=== PATIENT | female | born 1935 | race Caucasian/White ===

== ENCOUNTER 2016-10-19 12:17 | Inpatient (IN) | payer OTHER, MEDICARE ==
[2016-10-19] MEDS ORDERED: ONDANSETRON HCL 4 MG TAB PO PRN (14:53)
[2016-10-19] MEDS ORDERED: SPIRONOLACTONE 25 MG TAB PO PRN (14:53)
[2016-10-19] MEDS ORDERED: TEMAZEPAM 7.5 MG CAP PO PRN (14:53)
[2016-10-19] MEDS ORDERED: ALBUTEROL HFA 60 PUFF/INHALER INH PRN (14:53)
[2016-10-19] MEDS ORDERED: DEXTROSE/SALINE 0.45/KCL 20MEQ 1,000 ML/1,000 ML SOL IV SCH (15:00)
[2016-10-19 15:18] LABS: BASOPHILS % (AUTO) 1 % (0-3); EOSINOPHILS % (AUTO) 1 % (0-9); HEMATOCRIT 34 % (35-47); MEAN CORPUSCULAR HGB CONC 35.3 gm/dl (32.0-36.0); MEAN CORPUSCULAR VOLUME 86 fL (81-99); MONOCYTES % (AUTO) 8.8 % (0-12); NEUTROPHILS % (AUTO) 80.5 % (37-80)
[2016-10-19] MEDS ORDERED: LACTATED RINGERS 1,000 ML IV ONE (15:31)
[2016-10-19] MEDS ORDERED: CEFAZOLIN (PREMIX) 1 GM 1 GM/50 ML SOL IV ONE (15:31)
[2016-10-19 15:36] LABS: ALBUMIN 3.5 gm/dl (3.4-5.0); POTASSIUM 3.9 mMol/L (3.5-5.1)
[2016-10-19] MEDS ORDERED: SCOPOLAMINE 1.5MG PATCH TD SCH (15:45)
[2016-10-19] MEDS ORDERED: LACTATED RINGERS 1,000 ML IV SCH (15:45)
[2016-10-19 16:02] VITALS: BP 96/63; PULSE 65; RESP 20; TEMP 97.5; O2SAT 98
[2016-10-19 19:30] LABS: ABO A; ANTIBODY SCREEN Negative; RH TYPE Positive
[2016-10-19] MEDS ORDERED: CARVEDILOL 3.125 MG TAB PO SCH (21:00)
[2016-10-19] MEDS ORDERED: FAMOTIDINE 20 MG TAB PO SCH (21:00)
[2016-10-20] MEDS ORDERED: PANTOPRAZOLE SODIUM 40 MG ECT PO SCH (09:00)
[2016-10-20] MEDS ORDERED: BUPROPION XL 300 MG T24 PO SCH (09:00)
[2016-10-20] MEDS ORDERED: POTASSIUM CHLORIDE 10 MEQ TER PO SCH (09:00)
[2016-10-20] MEDS ORDERED: LISINOPRIL PO SCH (09:00)
[2016-10-20] MEDS ORDERED: ANASTROZOLE 1 MG TAB PO SCH (09:00)
== END 2016-10-19 19:00 | disposition short-term general hospital (02) | DRG 536 ==
LOC: ACUTE CARE 14:41
PROVIDERS: ADMIT Family Medicine; ATTEND Family Medicine
DX: S72.001A Fracture of unspecified part of neck of right femur, initial encounter for closed fracture (principal); C78.2 Secondary malignant neoplasm of pleura; I50.9 Heart failure, unspecified; C50.919 Malignant neoplasm of unspecified site of unspecified female breast; W19.XXXA Unspecified fall, initial encounter
CPT/HCPCS: 36415; 80053; 85025; 86850; 86900; 86901; 93005

== ENCOUNTER 2016-10-24 14:27 | Inpatient (IN) | payer OTHER, MEDICARE ==
[2016-10-24] MEDS ORDERED: RANITIDINE HCL 150 MG TAB PO PRN (17:19)
[2016-10-24] MEDS ORDERED: PATIENT EDUCATION 1 MISC PRN (17:51)
[2016-10-24] MEDS: OXYCODONE HYDROCHLORIDE 5 MG TAB PO PRN ×2 (17:59→21:59)
[2016-10-24] MEDS ORDERED: OMEPRAZOLE 40 MG ECC PO SCH (21:00)
[2016-10-24] MEDS: CARVEDILOL 3.125 MG TAB PO SCH (21:59)
[2016-10-24] MEDS: ONDANSETRON HCL 4 MG TAB PO PRN (21:59)
[2016-10-24] MEDS: RIVAROXABAN 10 MG TAB PO SCH (21:59)
[2016-10-24] MEDS ORDERED: TEMAZEPAM 15MG 15 MG CAP PO ONE (22:00)
[2016-10-24] MEDS: PANTOPRAZOLE SODIUM 40 MG ECT PO SCH (22:32)
[2016-10-25] MEDS: OXYCODONE HYDROCHLORIDE 5 MG TAB PO PRN ×4 (01:59→21:36)
[2016-10-25] MEDS ORDERED: POTASSIUM CHLORIDE 10 MEQ TER ONE (08:56)
[2016-10-25] MEDS ORDERED: POTASSIUM CHLORIDE 10 MEQ CAPSULE PO SCH (09:00)
[2016-10-25] MEDS: AZITHROMYCIN 250 MG TAB PO SCH (09:04)
[2016-10-25] MEDS: SPIRONOLACTONE 25 MG TAB PO SCH (09:06)
[2016-10-25] MEDS: LISINOPRIL 5 MG TAB PO SCH (09:06)
[2016-10-25] MEDS: BUPROPION XL 300 MG T24 PO SCH (09:07)
[2016-10-25] MEDS: CARVEDILOL 3.125 MG TAB PO SCH ×2 (09:07→21:36)
[2016-10-25] MEDS: ANASTROZOLE 1 MG TAB PO SCH ×2 (10:25→12:10)
[2016-10-25] MEDS: RIVAROXABAN 10 MG TAB PO SCH (15:48)
[2016-10-25] MEDS: ONDANSETRON HCL 4 MG TAB PO PRN (16:54)
[2016-10-25] MEDS: PANTOPRAZOLE SODIUM 40 MG ECT PO SCH (21:36)
[2016-10-25] MEDS: DOCUSATE SODIUM 100 MG SGL PO PRN (21:36)
[2016-10-25] MEDS: TEMAZEPAM 7.5 MG CAP PO PRN (21:37)
[2016-10-25] MEDS ORDERED: ALPRAZOLAM 0.25 MG TAB PO ONE (22:58)
[2016-10-26] MEDS: OXYCODONE HYDROCHLORIDE 5 MG TAB PO PRN ×4 (04:04→21:20)
[2016-10-26] MEDS: POTASSIUM CHLORIDE 10 MEQ TER PO SCH (08:48)
[2016-10-26] MEDS: LISINOPRIL 5 MG TAB PO SCH (08:49)
[2016-10-26] MEDS: SPIRONOLACTONE 25 MG TAB PO SCH (08:49)
[2016-10-26] MEDS: PANTOPRAZOLE SODIUM 40 MG ECT PO SCH (08:49)
[2016-10-26] MEDS: CARVEDILOL 3.125 MG TAB PO SCH ×2 (08:49→21:18)
[2016-10-26] MEDS: AZITHROMYCIN 250 MG TAB PO SCH (08:50)
[2016-10-26] MEDS: ANASTROZOLE 1 MG TAB PO SCH (08:51)
[2016-10-26] MEDS: BUPROPION XL 300 MG T24 PO SCH (08:51)
[2016-10-26] MEDS: DOCUSATE SODIUM 100 MG SGL PO PRN ×2 (13:07→21:20)
[2016-10-26] MEDS: FAMOTIDINE 20 MG TAB PO PRN (13:51)
[2016-10-26] MEDS: RIVAROXABAN 10 MG TAB PO SCH (16:06)
[2016-10-26] MEDS: TEMAZEPAM 7.5 MG CAP PO PRN (21:21)
[2016-10-26] MEDS ORDERED: DIAZEPAM 5 MG TAB PO ONE (23:23)
[2016-10-26] MEDS: ACETAMINOPHEN 325 MG PO PRN (23:31)
[2016-10-27] MEDS: OXYCODONE HYDROCHLORIDE 5 MG TAB PO PRN ×5 (04:30→23:28)
[2016-10-27] MEDS: SPIRONOLACTONE 25 MG TAB PO SCH (09:05)
[2016-10-27] MEDS: BUPROPION XL 300 MG T24 PO SCH (09:05)
[2016-10-27] MEDS: CARVEDILOL 3.125 MG TAB PO SCH ×2 (09:05→20:56)
[2016-10-27] MEDS: ANASTROZOLE 1 MG TAB PO SCH (09:05)
[2016-10-27] MEDS: POTASSIUM CHLORIDE 10 MEQ TER PO SCH (09:05)
[2016-10-27] MEDS: LISINOPRIL 5 MG TAB PO SCH (09:05)
[2016-10-27] MEDS: AZITHROMYCIN 250 MG TAB PO SCH (09:06)
[2016-10-27] MEDS: POLYETHYLENE GLYCOL 17 GM/1 TBS PDS PO PRN (09:06)
[2016-10-27] MEDS: PANTOPRAZOLE SODIUM 40 MG ECT PO SCH (09:14)
[2016-10-27] MEDS: ONDANSETRON HCL 4 MG TAB PO PRN (14:04)
[2016-10-27] MEDS: RIVAROXABAN 10 MG TAB PO SCH (16:22)
[2016-10-27] MEDS: DOCUSATE SODIUM 100 MG SGL PO PRN (20:56)
[2016-10-27] MEDS: TEMAZEPAM 15MG 15 MG CAP PO PRN (20:56)
[2016-10-28] MEDS: OXYCODONE HYDROCHLORIDE 5 MG TAB PO PRN ×4 (07:20→20:08)
[2016-10-28] MEDS: DOCUSATE SODIUM 100 MG SGL PO PRN ×2 (08:22→20:08)
[2016-10-28] MEDS: POLYETHYLENE GLYCOL 17 GM/1 TBS PDS PO PRN (08:22)
[2016-10-28] MEDS: SPIRONOLACTONE 25 MG TAB PO SCH (08:43)
[2016-10-28] MEDS: LISINOPRIL 5 MG TAB PO SCH (08:44)
[2016-10-28] MEDS: BUPROPION XL 300 MG T24 PO SCH (08:44)
[2016-10-28] MEDS: ANASTROZOLE 1 MG TAB PO SCH (08:44)
[2016-10-28] MEDS: POTASSIUM CHLORIDE 10 MEQ TER PO SCH (08:44)
[2016-10-28] MEDS: PANTOPRAZOLE SODIUM 40 MG ECT PO SCH (08:44)
[2016-10-28] MEDS: CARVEDILOL 3.125 MG TAB PO SCH ×2 (08:44→20:08)
[2016-10-28] MEDS: AZITHROMYCIN 250 MG TAB PO SCH (08:45)
[2016-10-28] MEDS: ONDANSETRON HCL 4 MG TAB PO PRN ×2 (08:55→20:28)
[2016-10-28] MEDS ORDERED: BISACODYL 5 MG TAB ECT PO PRN (13:45)
[2016-10-28] MEDS: RIVAROXABAN 10 MG TAB PO SCH (15:55)
[2016-10-28] MEDS: TEMAZEPAM 15MG 15 MG CAP PO PRN (21:39)
[2016-10-29] MEDS: OXYCODONE HYDROCHLORIDE 5 MG TAB PO PRN ×5 (00:12→21:02)
[2016-10-29] MEDS: PANTOPRAZOLE SODIUM 40 MG ECT PO SCH (08:55)
[2016-10-29] MEDS: CARVEDILOL 3.125 MG TAB PO SCH ×2 (08:55→20:02)
[2016-10-29] MEDS: POTASSIUM CHLORIDE 10 MEQ TER PO SCH (08:55)
[2016-10-29] MEDS: ANASTROZOLE 1 MG TAB PO SCH (08:55)
[2016-10-29] MEDS: BUPROPION XL 300 MG T24 PO SCH (08:56)
[2016-10-29] MEDS: LISINOPRIL 5 MG TAB PO SCH (08:56)
[2016-10-29] MEDS: SPIRONOLACTONE 25 MG TAB PO SCH (08:56)
[2016-10-29] MEDS: AZITHROMYCIN 250 MG TAB PO SCH (08:57)
[2016-10-29] MEDS: ONDANSETRON HCL 4 MG TAB PO PRN (15:12)
[2016-10-29] MEDS: RIVAROXABAN 10 MG TAB PO SCH (16:10)
[2016-10-29] MEDS: DOCUSATE SODIUM 100 MG SGL PO PRN (20:02)
[2016-10-29] MEDS: DIAZEPAM 5 MG TAB PO PRN (21:01)
[2016-10-29] MEDS: TEMAZEPAM 15MG 15 MG CAP PO PRN (23:34)
[2016-10-30] MEDS: OXYCODONE HYDROCHLORIDE 5 MG TAB PO PRN ×4 (05:49→19:52)
[2016-10-30] MEDS: BUPROPION XL 300 MG T24 PO SCH (08:25)
[2016-10-30] MEDS: POTASSIUM CHLORIDE 10 MEQ TER PO SCH (08:26)
[2016-10-30] MEDS: AZITHROMYCIN 250 MG TAB PO SCH (08:26)
[2016-10-30] MEDS: ANASTROZOLE 1 MG TAB PO SCH (08:27)
[2016-10-30] MEDS: PANTOPRAZOLE SODIUM 40 MG ECT PO SCH (08:27)
[2016-10-30] MEDS: SPIRONOLACTONE 25 MG TAB PO SCH (08:28)
[2016-10-30] MEDS: CARVEDILOL 3.125 MG TAB PO SCH ×2 (08:34→20:02)
[2016-10-30] MEDS: ONDANSETRON HCL 4 MG TAB PO PRN (11:04)
[2016-10-30] MEDS: LISINOPRIL 5 MG TAB PO SCH (11:07)
[2016-10-30] MEDS: RIVAROXABAN 10 MG TAB PO SCH (16:11)
[2016-10-30] MEDS: DIAZEPAM 5 MG TAB PO PRN (19:53)
[2016-10-30] MEDS: DOCUSATE SODIUM 100 MG SGL PO PRN (19:53)
[2016-10-30] MEDS: POLYETHYLENE GLYCOL 17 GM/1 TBS PDS PO PRN (20:02)
[2016-10-30] MEDS: TEMAZEPAM 15MG 15 MG CAP PO PRN (22:27)
[2016-10-31] MEDS: DIAZEPAM 5 MG TAB PO PRN ×2 (06:43→15:51)
[2016-10-31 07:26] LABS: CALCIUM 9.3 mg/dl (8.5-10.1); POTASSIUM 4.5 mMol/L (3.5-5.1)
[2016-10-31] MEDS: CARVEDILOL 3.125 MG TAB PO SCH ×2 (09:12→20:02)
[2016-10-31] MEDS: ANASTROZOLE 1 MG TAB PO SCH (09:12)
[2016-10-31] MEDS: BUPROPION XL 300 MG T24 PO SCH (09:12)
[2016-10-31] MEDS: POTASSIUM CHLORIDE 10 MEQ TER PO SCH (09:12)
[2016-10-31] MEDS: LISINOPRIL 5 MG TAB PO SCH (09:13)
[2016-10-31] MEDS: PANTOPRAZOLE SODIUM 40 MG ECT PO SCH (09:13)
[2016-10-31] MEDS: AZITHROMYCIN 250 MG TAB PO SCH (09:13)
[2016-10-31] MEDS: OXYCODONE HYDROCHLORIDE 5 MG TAB PO PRN ×4 (10:12→20:01)
[2016-10-31] MEDS: ONDANSETRON HCL 4 MG TAB PO PRN (11:12)
[2016-10-31] MEDS: RIVAROXABAN 10 MG TAB PO SCH (15:54)
[2016-10-31] MEDS: DOCUSATE SODIUM 100 MG SGL PO PRN (20:02)
[2016-10-31] MEDS: FAMOTIDINE 20 MG TAB PO PRN (20:37)
[2016-11-01] MEDS: DIAZEPAM 5 MG TAB PO PRN ×2 (00:15→22:31)
[2016-11-01] MEDS: OXYCODONE HYDROCHLORIDE 5 MG TAB PO PRN ×5 (01:35→21:06)
[2016-11-01] MEDS: ONDANSETRON HCL 4 MG TAB PO PRN (01:36)
[2016-11-01] MEDS: POTASSIUM CHLORIDE 10 MEQ TER PO SCH (09:29)
[2016-11-01] MEDS: LISINOPRIL 5 MG TAB PO SCH (09:29)
[2016-11-01] MEDS: BUPROPION XL 300 MG T24 PO SCH (09:29)
[2016-11-01] MEDS: AZITHROMYCIN 250 MG TAB PO SCH (09:29)
[2016-11-01] MEDS: ANASTROZOLE 1 MG TAB PO SCH (09:29)
[2016-11-01] MEDS: CARVEDILOL 3.125 MG TAB PO SCH ×2 (09:29→20:25)
[2016-11-01] MEDS: DOCUSATE SODIUM 100 MG SGL PO PRN ×2 (09:29→20:25)
[2016-11-01] MEDS: PANTOPRAZOLE SODIUM 40 MG ECT PO SCH (09:29)
[2016-11-01] MEDS: RIVAROXABAN 10 MG TAB PO SCH (16:49)
[2016-11-01] MEDS: FAMOTIDINE 20 MG TAB PO PRN (17:41)
[2016-11-02] MEDS: OXYCODONE HYDROCHLORIDE 5 MG TAB PO PRN ×4 (01:37→18:35)
[2016-11-02] MEDS: CARVEDILOL 3.125 MG TAB PO SCH ×2 (09:16→20:17)
[2016-11-02] MEDS: ANASTROZOLE 1 MG TAB PO SCH (09:16)
[2016-11-02] MEDS: PANTOPRAZOLE SODIUM 40 MG ECT PO SCH (09:17)
[2016-11-02] MEDS: BUPROPION XL 300 MG T24 PO SCH (09:17)
[2016-11-02] MEDS: AZITHROMYCIN 250 MG TAB PO SCH (09:17)
[2016-11-02] MEDS: LISINOPRIL 5 MG TAB PO SCH (09:17)
[2016-11-02] MEDS: POTASSIUM CHLORIDE 10 MEQ TER PO SCH (09:17)
[2016-11-02] MEDS: DOCUSATE SODIUM 100 MG SGL PO PRN (09:22)
[2016-11-02] MEDS: ONDANSETRON HCL 4 MG TAB PO PRN ×2 (11:28→18:35)
[2016-11-02] MEDS: FAMOTIDINE 20 MG TAB PO PRN (13:28)
[2016-11-02] MEDS: RIVAROXABAN 10 MG TAB PO SCH (16:23)
[2016-11-02] MEDS: DIAZEPAM 5 MG TAB PO PRN (20:17)
[2016-11-02] MEDS: FAMOTIDINE 20 MG TAB PO SCH (20:17)
[2016-11-03] MEDS: OXYCODONE HYDROCHLORIDE 5 MG TAB PO PRN ×5 (00:13→21:12)
[2016-11-03] MEDS ORDERED: DIAZEPAM 5 MG TAB PO ONE (00:30)
[2016-11-03] MEDS: ACETAMINOPHEN 325 MG PO PRN (00:34)
[2016-11-03] MEDS ORDERED: BIOTENE PO PRN (03:16)
[2016-11-03 07:10] LABS: CALCIUM 9.2 mg/dl (8.5-10.1); POTASSIUM 4.5 mMol/L (3.5-5.1)
[2016-11-03] MEDS: ANASTROZOLE 1 MG TAB PO SCH (08:06)
[2016-11-03] MEDS: CARVEDILOL 3.125 MG TAB PO SCH ×2 (08:06→21:09)
[2016-11-03] MEDS: AZITHROMYCIN 250 MG TAB PO SCH (08:07)
[2016-11-03] MEDS: POTASSIUM CHLORIDE 10 MEQ TER PO SCH (08:07)
[2016-11-03] MEDS: LISINOPRIL 5 MG TAB PO SCH (08:07)
[2016-11-03] MEDS: PANTOPRAZOLE SODIUM 40 MG ECT PO SCH (08:07)
[2016-11-03] MEDS: BUPROPION XL 300 MG T24 PO SCH (08:07)
[2016-11-03] MEDS: DIAZEPAM 5 MG TAB PO PRN (16:21)
[2016-11-03] MEDS: RIVAROXABAN 10 MG TAB PO SCH (16:21)
[2016-11-03] MEDS: FAMOTIDINE 20 MG TAB PO SCH (17:26)
[2016-11-04] MEDS: DIAZEPAM 5 MG TAB PO PRN ×3 (00:26→20:31)
[2016-11-04] MEDS: OXYCODONE HYDROCHLORIDE 5 MG TAB PO PRN ×4 (01:37→20:31)
[2016-11-04] MEDS: ACETAMINOPHEN 325 MG PO PRN ×4 (01:38→22:56)
[2016-11-04] MEDS: POLYETHYLENE GLYCOL 17 GM/1 TBS PDS PO PRN ×2 (06:20→20:39)
[2016-11-04] MEDS: BUPROPION XL 300 MG T24 PO SCH (08:12)
[2016-11-04] MEDS: ANASTROZOLE 1 MG TAB PO SCH (08:12)
[2016-11-04] MEDS: LISINOPRIL 5 MG TAB PO SCH (08:13)
[2016-11-04] MEDS: PANTOPRAZOLE SODIUM 40 MG ECT PO SCH (08:13)
[2016-11-04] MEDS: POTASSIUM CHLORIDE 10 MEQ TER PO SCH (08:13)
[2016-11-04] MEDS: AZITHROMYCIN 250 MG TAB PO SCH (08:13)
[2016-11-04] MEDS: CARVEDILOL 3.125 MG TAB PO SCH ×2 (08:14→20:30)
[2016-11-04] MEDS: RIVAROXABAN 10 MG TAB PO SCH (16:54)
[2016-11-04] MEDS: FAMOTIDINE 20 MG TAB PO SCH (16:54)
[2016-11-05] MEDS: OXYCODONE HYDROCHLORIDE 5 MG TAB PO PRN (08:10)
[2016-11-05] MEDS: ACETAMINOPHEN 325 MG PO PRN (08:11)
[2016-11-05] MEDS: POLYETHYLENE GLYCOL 17 GM/1 TBS PDS PO PRN (08:11)
[2016-11-05] MEDS: CARVEDILOL 3.125 MG TAB PO SCH (08:17)
[2016-11-05] MEDS: ANASTROZOLE 1 MG TAB PO SCH (08:17)
[2016-11-05] MEDS: BUPROPION XL 300 MG T24 PO SCH (08:17)
[2016-11-05] MEDS: POTASSIUM CHLORIDE 10 MEQ TER PO SCH (08:19)
[2016-11-05] MEDS: AZITHROMYCIN 250 MG TAB PO SCH (08:19)
[2016-11-05] MEDS: LISINOPRIL 5 MG TAB PO SCH (08:20)
[2016-11-05] MEDS: PANTOPRAZOLE SODIUM 40 MG ECT PO SCH (08:20)
[2016-11-05 08:35] VITALS: BP 121/70; PULSE 64; RESP 24; TEMP 97.5; O2SAT 98
[2016-11-05] MEDS ORDERED: BISACODYL 10 MG SUP PR PRN (09:06)
[2016-11-05 09:37] LABS: CALCIUM 9.3 mg/dl (8.5-10.1); POTASSIUM 4.4 mMol/L (3.5-5.1)
[2016-11-05] MEDS: DIAZEPAM 5 MG TAB PO PRN (12:43)
[2016-11-05 14:01] LABS: BASOPHILS % (AUTO) 1 % (0-3); EOSINOPHILS % (AUTO) 2 % (0-9); HEMATOCRIT 29 % (35-47); MEAN CORPUSCULAR HGB CONC 33.6 gm/dl (32.0-36.0); MEAN CORPUSCULAR VOLUME 89 fL (81-99); MONOCYTES % (AUTO) 8.2 % (0-12); NEUTROPHILS % (AUTO) 78.5 % (37-80)
== END 2016-11-05 14:15 | disposition home or self-care (01) | DRG 560 ==
LOC: ACUTE CARE 16:50
PROVIDERS: ADMIT Family Medicine; ATTEND Family Medicine
PROC: F01ZDFZ Gait and/or Balance Assessment using Assistive, Adaptive, Supportive or Protective Equipment (ICD-10-PCS; principal; 2016-10-25)
PROC: F01ZBZZ Bed Mobility Assessment (ICD-10-PCS; 2016-10-25)
PROC: F01ZCZZ Transfer Assessment (ICD-10-PCS; 2016-10-25)
PROC: F02Z0ZZ Bathing/Showering Assessment (ICD-10-PCS; 2016-10-25)
PROC: F02Z1ZZ Dressing Assessment (ICD-10-PCS; 2016-10-25)
PROC: F02Z3ZZ Grooming/Personal Hygiene Assessment (ICD-10-PCS; 2016-10-25)
DX: Z47.1 Aftercare following joint replacement surgery (principal); C79.9 Secondary malignant neoplasm of unspecified site; I50.9 Heart failure, unspecified; C50.919 Malignant neoplasm of unspecified site of unspecified female breast; E87.1 Hypo-osmolality and hyponatremia; Z96.641 Presence of right artificial hip joint; R11.0 Nausea; M62.838 Other muscle spasm
CPT/HCPCS: 36415; 80048; 85025; 94762; A6232

== ENCOUNTER 2016-11-22 10:08 | Emergency (ER) | payer MEDICARE, OTHER ==
[2016-11-22] MEDS ORDERED: SODIUM CHLORIDE 0.9% 1000ML 600 ML IV ONE (10:44)
[2016-11-22] MEDS ORDERED: LORAZEPAM 2 MG/ML SOL IV ONE (10:45)
[2016-11-22] MEDS ORDERED: SODIUM CHLORIDE 0.9% FLUSH 10 ML SOL IV PRN (11:05)
[2016-11-22 11:12] LABS: BASOPHILS % (AUTO) 1 % (0-3); EOSINOPHILS % (AUTO) 0 % (0-9); HEMATOCRIT 34 % (35-47); MEAN CORPUSCULAR HGB CONC 35.7 gm/dl (32.0-36.0); MEAN CORPUSCULAR VOLUME 86 fL (81-99); MONOCYTES % (AUTO) 5.9 % (0-12); NEUTROPHILS % (AUTO) 88.2 % (37-80)
[2016-11-22 11:13] LABS: ALBUMIN 3.3 gm/dl (3.4-5.0); CALCIUM 9.6 mg/dl (8.5-10.1); POTASSIUM 3.8 mMol/L (3.5-5.1)
[2016-11-22] MEDS ORDERED: LORAZEPAM 2 MG/ML SOL ONE (11:26)
[2016-11-22 11:43] VITALS: TEMP 97.3
[2016-11-22 12:55] VITALS: BP 99/60; PULSE 83; RESP 20; O2SAT 100
== END 2016-11-22 13:15 | disposition home or self-care (01) | DRG 392 ==
LOC: ED 10:08
DX: K59.01 Slow transit constipation (principal)
CPT/HCPCS: 36415; 74020; 80053; 85025; 96365; 96366; 96374; 99284; 99285; J2060

== ENCOUNTER 2016-12-01 10:32 | Outpatient (CLI) | payer OTHER, MEDICARE ==
[2016-11-22 12:55] VITALS: O2SAT 100
== END 2016-12-01 10:33 | disposition home or self-care (01) | DRG 566 ==
LOC: CONVCARE 10:32
PROVIDERS: ATTEND Orthopaedic Surgery
DX: Z96.641 Presence of right artificial hip joint (principal)
CPT/HCPCS: 73502

== ENCOUNTER 2018-09-07 17:53 | Emergency (ER) | payer MEDICARE, OTHER ==
[2018-09-07] MEDS ORDERED: ALBUTEROL/IPRATROPIUM 1 VIAL SOL INH ONE (18:47)
[2018-09-07 18:48] LABS: BASOPHILS % (AUTO) 1 % (0-3); EOSINOPHILS % (AUTO) 0 % (0-9); HEMATOCRIT 35 % (35-47); HEMOGLOBIN 12.1 gm/dl (12.0-15.5); LYMPHOCYTES % (AUTO) 12.4 % (10-50); MEAN CORPUSCULAR HEMOGLOBIN 35.3 pg (27.0-32.0); MEAN CORPUSCULAR HGB CONC 34.7 gm/dl (32.0-36.0); MONOCYTES % (AUTO) 15.3 % (0-12); NEUTROPHILS % (AUTO) 71.3 % (37-80)
[2018-09-07] MEDS ORDERED: ALBUTEROL/IPRATROPIUM 1 VIAL SOL ONE (18:51)
[2018-09-07 18:57] LABS: MEAN CORPUSCULAR VOLUME 102 fL (81-99)
[2018-09-07 19:03] LABS: ANISOCYTOSIS SLIGHT AMT; POIKILOCYTOSIS SLIGHT AMT
[2018-09-07 19:04] LABS: OVALOCYTES PRESENT
[2018-09-07 19:08] LABS: ALBUMIN 3.3 gm/dl (3.4-5.0); BILIRUBIN,TOTAL 0.4 mg/dl (0.2-1.0); CALCIUM 9.1 mg/dl (8.5-10.1); CARBON DIOXIDE 31.9 mEq/L (21-32); CREATININE 0.98 mg/dl (0.60-1.00); POTASSIUM 4.9 mMol/L (3.5-5.1); TOTAL PROTEIN 6.6 gm/dl (6.4-8.2); TROP I 0.037 ng/ml (0.000-0.056)
[2018-09-07 19:11] VITALS: O2SAT 98
[2018-09-07] MEDS ORDERED: AMOXIL/CLAVULANATE 400/5 ML PDR PO ONE (19:25)
[2018-09-07 19:34] VITALS: BP 106/66; PULSE 78; RESP 28; TEMP 97.4
[2018-09-07] MEDS ORDERED: AUGMENTIN(FRIDGE) 400 MG/5 ML ONE (19:37)
[2018-09-07] MEDS ORDERED: AMOXIL/CLAVULANATE 400/5 ML PDR ONE (19:37)
== END 2018-09-07 19:56 | disposition home or self-care (01) | DRG 204 ==
LOC: ED 17:53
DX: R06.02 Shortness of breath (principal); J18.1 Lobar pneumonia, unspecified organism
CPT/HCPCS: 36415; 71046; 80053; 83880; 84484; 85025; 93005; 99283; 99284; A9270-GY

== ENCOUNTER 2018-09-26 09:48 | Emergency (ER) | payer MEDICARE, OTHER ==
[2018-09-26] MEDS ORDERED: ALBUTEROL/IPRATROPIUM 1 VIAL SOL INH ONE (10:01)
[2018-09-26] MEDS ORDERED: ALBUTEROL/IPRATROPIUM 1 VIAL SOL ONE (10:02)
[2018-09-26] MEDS ORDERED: LORAZEPAM 0.5 MG TAB PO ONE (10:16)
[2018-09-26] MEDS ORDERED: LORAZEPAM 0.5 MG TAB ONE (10:21)
[2018-09-26 10:39] LABS: BASOPHILS % (AUTO) 1 % (0-3); EOSINOPHILS % (AUTO) 0 % (0-9); HEMATOCRIT 34 % (35-47); HEMOGLOBIN 11.6 gm/dl (12.0-15.5); LYMPHOCYTES % (AUTO) 10.3 % (10-50); MEAN CORPUSCULAR HGB CONC 33.8 gm/dl (32.0-36.0); NEUTROPHILS % (AUTO) 80.8 % (37-80)
[2018-09-26 10:52] LABS: ALBUMIN 3.1 gm/dl (3.4-5.0); BILIRUBIN,TOTAL 0.4 mg/dl (0.2-1.0); CARBON DIOXIDE 29.4 mEq/L (21-32); CREATININE 0.83 mg/dl (0.60-1.00); MEAN CORPUSCULAR VOLUME 104 fL (81-99); POTASSIUM 4.7 mMol/L (3.5-5.1); TOTAL PROTEIN 6.3 gm/dl (6.4-8.2)
[2018-09-26 11:01] LABS: OVALOCYTES PRESENT; POIKILOCYTOSIS PRESENT
[2018-09-26 11:19] VITALS: PULSE 81
[2018-09-26 12:05] VITALS: BP 104/72; O2SAT 98
[2018-09-26 12:10] VITALS: TEMP 97.3
[2018-09-26 12:28] VITALS: RESP 20
== END 2018-09-26 12:15 | disposition home or self-care (01) | DRG 880 ==
LOC: ED 09:48
DX: F41.9 Anxiety disorder, unspecified (principal); R06.02 Shortness of breath; I50.9 Heart failure, unspecified
CPT/HCPCS: 36415; 71046; 80053; 83880; 85025; 99283; 99284; A9270-GY

== ENCOUNTER 2018-10-15 07:05 | Inpatient (IN) | payer MEDICARE, OTHER ==
[2018-10-15 07:57] LABS: BASOPHILS % (AUTO) 1 % (0-3); EOSINOPHILS % (AUTO) 1 % (0-9); HEMATOCRIT 35 % (35-47); HEMOGLOBIN 11.7 gm/dl (12.0-15.5); LYMPHOCYTES % (AUTO) 6.3 % (10-50); MEAN CORPUSCULAR HEMOGLOBIN 33.8 pg (27.0-32.0); MEAN CORPUSCULAR HGB CONC 32.9 gm/dl (32.0-36.0); MONOCYTES % (AUTO) 4.5 % (0-12); NEUTROPHILS % (AUTO) 87.4 % (37-80)
[2018-10-15 07:59] LABS: MEAN CORPUSCULAR VOLUME 103 fL (81-99)
[2018-10-15 08:02] LABS: CALCIUM 8.8 mg/dl (8.5-10.1); CARBON DIOXIDE 30.7 mEq/L (21-32); CREATININE 0.89 mg/dl (0.60-1.00); POTASSIUM 4.8 mMol/L (3.5-5.1)
[2018-10-15] MEDS ORDERED: FUROSEMIDE 40 MG SOL IV ONE (08:46)
[2018-10-15] MEDS: SODIUM CHLORIDE 0.9% FLUSH 10 ML SOL IV PRN (08:48)
[2018-10-15] MEDS ORDERED: FUROSEMIDE 40 MG SOL ONE (08:57)
[2018-10-15] MEDS ORDERED: PROCHLORPERAZINE MALEATE 5 MG TAB PO PRN (13:23)
[2018-10-15] MEDS: PALBOCICLIB 125 MG PO SCH (15:50)
[2018-10-15] MEDS: CARVEDILOL 3.125 MG TAB PO SCH ×2 (15:51→20:08)
[2018-10-15] MEDS: LORAZEPAM 0.5 MG TAB PO PRN ×2 (15:52→20:16)
[2018-10-15] MEDS: FUROSEMIDE 40 MG TAB PO SCH (15:52)
[2018-10-15] MEDS: SPIRONOLACTONE 25 MG TAB PO SCH (15:52)
[2018-10-15] MEDS: PANTOPRAZOLE SODIUM 40 MG ECT PO SCH (15:52)
[2018-10-15] MEDS: ENOXAPARIN 40 MG SOL SC SCH (15:59)
[2018-10-15] MEDS: BUPROPION XL 300 MG T24 PO SCH (16:35)
[2018-10-15] MEDS: POLYETHYLENE GLYCOL 17 GM/1 TBS PDS PO SCH (20:08)
[2018-10-15] MEDS: ALPRAZOLAM 0.25 MG TAB PO PRN (20:23)
[2018-10-16] MEDS: SODIUM CHLORIDE 0.9% FLUSH 10 ML SOL IV PRN (02:20)
[2018-10-16] MEDS ORDERED: LISINOPRIL 5 MG TAB PO SCH (09:00)
[2018-10-16] MEDS: POLYETHYLENE GLYCOL 17 GM/1 TBS PDS PO SCH ×2 (09:47→20:06)
[2018-10-16] MEDS: ENOXAPARIN 40 MG SOL SC SCH (09:47)
[2018-10-16] MEDS: SPIRONOLACTONE 25 MG TAB PO SCH (09:51)
[2018-10-16] MEDS: CARVEDILOL 3.125 MG TAB PO SCH ×2 (09:51→20:02)
[2018-10-16] MEDS: LETROZOLE 2.5 MG TAB PO SCH (09:52)
[2018-10-16] MEDS: FUROSEMIDE 40 MG TAB PO SCH (09:53)
[2018-10-16] MEDS: PALBOCICLIB 125 MG PO SCH (09:54)
[2018-10-16] MEDS: PANTOPRAZOLE SODIUM 40 MG ECT PO SCH (09:54)
[2018-10-16] MEDS: BUPROPION XL 300 MG T24 PO SCH (09:55)
[2018-10-16] MEDS ORDERED: SODIUM CHLORIDE 0.9% FLUSH 10 ML SOL IV SCH (14:00)
[2018-10-16] MEDS: ALPRAZOLAM 0.25 MG TAB PO PRN ×2 (20:04→22:51)
[2018-10-17 07:39] LABS: CALCIUM 8.6 mg/dl (8.5-10.1); CREATININE 0.81 mg/dl (0.60-1.00); POTASSIUM 4.2 mMol/L (3.5-5.1)
[2018-10-17] MEDS: SPIRONOLACTONE 25 MG TAB PO SCH (08:32)
[2018-10-17] MEDS: LETROZOLE 2.5 MG TAB PO SCH (08:32)
[2018-10-17] MEDS: CARVEDILOL 3.125 MG TAB PO SCH ×2 (08:32→20:09)
[2018-10-17] MEDS: PALBOCICLIB 125 MG PO SCH (08:33)
[2018-10-17] MEDS: PANTOPRAZOLE SODIUM 40 MG ECT PO SCH (08:33)
[2018-10-17] MEDS: BUPROPION XL 300 MG T24 PO SCH (08:33)
[2018-10-17] MEDS: POLYETHYLENE GLYCOL 17 GM/1 TBS PDS PO SCH ×2 (08:37→20:09)
[2018-10-17] MEDS: ENOXAPARIN 40 MG SOL SC SCH (10:24)
[2018-10-17] MEDS: FUROSEMIDE 20 MG TAB PO SCH (10:25)
[2018-10-17] MEDS: ONDANSETRON HCL 4 MG TAB PO PRN ×2 (11:45→18:09)
[2018-10-17 20:03] VITALS: RESP 18
[2018-10-17] MEDS: ALPRAZOLAM 0.25 MG TAB PO PRN (20:09)
[2018-10-18] MEDS: PALBOCICLIB 125 MG PO SCH (10:23)
[2018-10-18] MEDS: SPIRONOLACTONE 25 MG TAB PO SCH (10:24)
[2018-10-18] MEDS: LETROZOLE 2.5 MG TAB PO SCH (10:24)
[2018-10-18] MEDS: FUROSEMIDE 20 MG TAB PO SCH (10:25)
[2018-10-18] MEDS: BUPROPION XL 300 MG T24 PO SCH (10:26)
[2018-10-18] MEDS: PANTOPRAZOLE SODIUM 40 MG ECT PO SCH (10:26)
[2018-10-18] MEDS: CARVEDILOL 3.125 MG TAB PO SCH (10:28)
[2018-10-18] MEDS: ENOXAPARIN 40 MG SOL SC SCH (10:31)
[2018-10-18] MEDS: POLYETHYLENE GLYCOL 17 GM/1 TBS PDS PO SCH (11:11)
[2018-10-18] MEDS: ONDANSETRON HCL 4 MG TAB PO PRN ×2 (11:51→17:38)
[2018-10-18 17:42] VITALS: BP 102/70; PULSE 87; TEMP 98.5; O2SAT 96
== END 2018-10-18 19:32 | disposition swing bed (61) | DRG 292 ==
LOC: ED 07:05 → UNDOADMIN 10:58 → ACUTE CARE 10:58
PROVIDERS: ADMIT Family Medicine; ATTEND Family Medicine
PROC: F01L0FZ Muscle Performance Assessment of Musculoskeletal System - Lower Back / Lower Extremity using Assistive, Adaptive, Supportive or Protective Equipment (ICD-10-PCS; principal; 2018-10-16)
PROC: F01L5ZZ Range of Motion and Joint Integrity Assessment of Musculoskeletal System - Lower Back / Lower Extremity (ICD-10-PCS; 2018-10-16)
PROC: F01ZBZZ Bed Mobility Assessment (ICD-10-PCS; 2018-10-16)
PROC: F02Z0FZ Bathing/Showering Assessment using Assistive, Adaptive, Supportive or Protective Equipment (ICD-10-PCS; 2018-10-18)
PROC: F02Z3ZZ Grooming/Personal Hygiene Assessment (ICD-10-PCS; 2018-10-18)
DX: I50.9 Heart failure, unspecified (principal); C79.81 Secondary malignant neoplasm of breast; E44.0 Moderate protein-calorie malnutrition; R06.02 Shortness of breath; J44.9 Chronic obstructive pulmonary disease, unspecified
CPT/HCPCS: 36415; 71045; 80048; 83880; 85025; 93005; 93012; 94150; 94664; 96374; 99221; 99283; J1650; J1940; A9270; A9270-GY

== ENCOUNTER 2018-10-18 10:23 | Inpatient (IN) | payer MEDICARE, OTHER ==
[2018-10-18] MEDS ORDERED: ALPRAZOLAM 0.25 MG TAB PO PRN (19:27)
[2018-10-18] MEDS: POLYETHYLENE GLYCOL 17 GM/1 TBS PDS PO SCH (20:58)
[2018-10-18] MEDS: CARVEDILOL 3.125 MG TAB PO SCH (20:58)
[2018-10-19] MEDS: FUROSEMIDE 20 MG TAB PO SCH (08:52)
[2018-10-19] MEDS: SPIRONOLACTONE 25 MG TAB PO SCH (08:52)
[2018-10-19] MEDS: CARVEDILOL 3.125 MG TAB PO SCH ×2 (09:01→21:05)
[2018-10-19] MEDS: POLYETHYLENE GLYCOL 17 GM/1 TBS PDS PO SCH ×2 (09:03→21:03)
[2018-10-19] MEDS: PALBOCICLIB 125 MG PO SCH ×2 (09:52→10:58)
[2018-10-19] MEDS: PANTOPRAZOLE SODIUM 40 MG ECT PO SCH (09:53)
[2018-10-19] MEDS: LETROZOLE 2.5 MG TAB PO SCH (09:54)
[2018-10-19] MEDS: BUPROPION XL 300 MG T24 PO SCH (09:55)
[2018-10-19] MEDS: ONDANSETRON HCL 4 MG TAB PO PRN (11:44)
[2018-10-19] MEDS: PROCHLORPERAZINE MALEATE 5 MG TAB PO PRN (13:55)
[2018-10-19] MEDS ORDERED: ALPRAZOLAM 0.25 MG TAB PO ONE (16:15)
[2018-10-19 16:41] VITALS: TEMP 98.2
[2018-10-20 07:58] VITALS: BP 106/71; PULSE 85; RESP 18; O2SAT 95
[2018-10-20] MEDS: ONDANSETRON HCL 4 MG TAB PO PRN (07:59)
[2018-10-20] MEDS: SPIRONOLACTONE 25 MG TAB PO SCH (09:29)
[2018-10-20] MEDS: PALBOCICLIB 125 MG PO SCH (09:29)
[2018-10-20] MEDS: CARVEDILOL 3.125 MG TAB PO SCH (09:29)
[2018-10-20] MEDS: LETROZOLE 2.5 MG TAB PO SCH (09:30)
[2018-10-20] MEDS: POLYETHYLENE GLYCOL 17 GM/1 TBS PDS PO SCH (09:30)
[2018-10-20] MEDS: PANTOPRAZOLE SODIUM 40 MG ECT PO SCH (09:30)
[2018-10-20] MEDS: FUROSEMIDE 20 MG TAB PO SCH (09:31)
[2018-10-20] MEDS: BUPROPION XL 300 MG T24 PO SCH (09:32)
[2018-10-20] MEDS: PROCHLORPERAZINE MALEATE 5 MG TAB PO PRN (12:05)
[2018-10-20] MEDS ORDERED: ALPRAZOLAM 0.25 MG TAB PO PRN (13:38)
[2018-10-20 18:45] LABS: HEMATOCRIT 39 % (35-47); HEMOGLOBIN 12.8 gm/dl (12.0-15.5); MEAN CORPUSCULAR HEMOGLOBIN 34.2 pg (27.0-32.0); MEAN CORPUSCULAR HGB CONC 32.8 gm/dl (32.0-36.0)
[2018-10-20 18:46] LABS: MEAN CORPUSCULAR VOLUME 104 fL (81-99)
[2018-10-20] MEDS ORDERED: FUROSEMIDE 20mg SOL IV ONE (18:53)
[2018-10-20 18:58] LABS: CALCIUM 9.3 mg/dl (8.5-10.1); CARBON DIOXIDE 32.1 mEq/L (21-32); CREATININE 1.06 mg/dl (0.60-1.00); POTASSIUM 5.4 mMol/L (3.5-5.1); TROP I 0.09 ng/ml (0.000-0.056)
[2018-10-20 19:04] LABS: BAND NEUTROPHILS % (MANUAL) 4 %; BASOPHILS % (MANUAL) 3 % (0-3); EOSINOPHILS % (MANUAL) 0 % (0-9); LYMPHOCYTES % (MANUAL) 13 % (10-50); MONOCYTES % (MANUAL) 1 % (0-12); NEUTROPHILS % (MANUAL) 79 % (37-80); POIKILOCYTOSIS SLIGHT AMT
[2018-10-20 19:05] LABS: ANISOCYTOSIS SLIGHT AMT; BURR CELLS PRESENT; OVALOCYTES PRESENT
[2018-10-20] MEDS ORDERED: TRAZODONE HYDROCHLORIDE 50 MG TAB PO SCH (21:00)
[2018-10-21] MEDS ORDERED: ENOXAPARIN 40 MG SOL SC SCH (09:00)
== END 2018-10-20 18:50 | disposition short-term general hospital (02) | DRG 293 ==
LOC: ACUTE CARE 19:40
PROVIDERS: ADMIT Family Medicine; ATTEND Family Medicine
PROC: F01L0ZZ Muscle Performance Assessment of Musculoskeletal System - Lower Back / Lower Extremity (ICD-10-PCS; principal; 2018-10-18)
PROC: F01L5ZZ Range of Motion and Joint Integrity Assessment of Musculoskeletal System - Lower Back / Lower Extremity (ICD-10-PCS; 2018-10-18)
PROC: F02Z0FZ Bathing/Showering Assessment using Assistive, Adaptive, Supportive or Protective Equipment (ICD-10-PCS; 2018-10-19)
PROC: F02Z3ZZ Grooming/Personal Hygiene Assessment (ICD-10-PCS; 2018-10-19)
DX: I50.9 Heart failure, unspecified (principal); R06.02 Shortness of breath; R53.1 Weakness
CPT/HCPCS: 36415; 71045; 80048; 84484; 85007; 85027; 93005; J1940; A9270-GY

== ENCOUNTER 2018-10-20 18:50 | Inpatient (IN) | payer MEDICARE, OTHER ==
[2018-10-20] MEDS ORDERED: FUROSEMIDE 20mg SOL IV ONE (19:38)
[2018-10-20] MEDS ORDERED: ALPRAZOLAM 0.25 MG TAB PO PRN (20:28)
[2018-10-20] MEDS ORDERED: PALBOCICLIB 125 MG PO SCH (20:30)
[2018-10-20] MEDS: CARVEDILOL 3.125 MG TAB PO SCH (21:47)
[2018-10-20] MEDS: PANTOPRAZOLE SODIUM 40 MG ECT PO SCH (21:49)
[2018-10-21 08:00] LABS: HEMATOCRIT 34 % (35-47); HEMOGLOBIN 11.6 gm/dl (12.0-15.5); MEAN CORPUSCULAR HEMOGLOBIN 35.4 pg (27.0-32.0); MEAN CORPUSCULAR HGB CONC 33.9 gm/dl (32.0-36.0)
[2018-10-21 08:11] LABS: CALCIUM 9.1 mg/dl (8.5-10.1); CREATININE 1.1 mg/dl (0.60-1.00); POTASSIUM 4.8 mMol/L (3.5-5.1)
[2018-10-21] MEDS: CARVEDILOL 3.125 MG TAB PO SCH ×2 (08:11→20:14)
[2018-10-21] MEDS: SPIRONOLACTONE 25 MG TAB PO SCH (08:11)
[2018-10-21] MEDS: BUPROPION HCL 300 MG PO SCH (08:11)
[2018-10-21] MEDS: LETROZOLE 2.5 MG PO SCH (08:12)
[2018-10-21] MEDS: PANTOPRAZOLE SODIUM 40 MG ECT PO SCH ×2 (08:14→20:13)
[2018-10-21 08:34] LABS: MEAN CORPUSCULAR VOLUME 105 fL (81-99)
[2018-10-21] MEDS ORDERED: PALBOCICLIB 125 MG PO SCH (09:00)
[2018-10-21] MEDS: PALBOCICLIB 125 MG PO SCH (09:00)
[2018-10-21] MEDS ORDERED: ENOXAPARIN 30 MG SOL SC SCH ×2 (09:00→23:59)
[2018-10-21 09:19] LABS: BAND NEUTROPHILS % (MANUAL) 0 %; BASOPHILS % (MANUAL) 0 % (0-3); EOSINOPHILS % (MANUAL) 0 % (0-9); LYMPHOCYTES % (MANUAL) 16 % (10-50); MONOCYTES % (MANUAL) 7 % (0-12); NEUTROPHILS % (MANUAL) 77 % (37-80); POIKILOCYTOSIS SLIGHT AMT
[2018-10-21 09:20] LABS: ANISOCYTOSIS SLIGHT AMT; OVALOCYTES PRESENT
[2018-10-21] MEDS: UBIDECARENONE 400 MG PO SCH ×2 (10:48→16:29)
[2018-10-21] MEDS: ONDANSETRON HCL 4 MG TAB PO PRN ×2 (11:01→17:32)
[2018-10-21] MEDS: PROCHLORPERAZINE MALEATE 5 MG TAB PO PRN (12:18)
[2018-10-21] MEDS: LORAZEPAM 0.5 MG TAB PO PRN ×2 (14:53→20:13)
[2018-10-21] MEDS: HYDROXYZINE PAMOATE 25 MG CAPSULE PO PRN (21:44)
[2018-10-22 07:31] LABS: HEMATOCRIT 35 % (35-47); HEMOGLOBIN 11.5 gm/dl (12.0-15.5); MEAN CORPUSCULAR HEMOGLOBIN 33.8 pg (27.0-32.0); MEAN CORPUSCULAR HGB CONC 32.6 gm/dl (32.0-36.0)
[2018-10-22 07:35] LABS: MEAN CORPUSCULAR VOLUME 104 fL (81-99)
[2018-10-22 07:50] LABS: CALCIUM 8.9 mg/dl (8.5-10.1); CARBON DIOXIDE 30.9 mEq/L (21-32); CREATININE 1.04 mg/dl (0.60-1.00); POTASSIUM 5.1 mMol/L (3.5-5.1); TROP I 0.112 ng/ml (0.000-0.056)
[2018-10-22 08:02] LABS: BAND NEUTROPHILS % (MANUAL) 5 %; LYMPHOCYTES % (MANUAL) 12 % (10-50); NEUTROPHILS % (MANUAL) 71 % (37-80)
[2018-10-22 08:03] LABS: ANISOCYTOSIS SLIGHT AMT; BASOPHILS % (MANUAL) 2 % (0-3); BURR CELLS PRESENT; EOSINOPHILS % (MANUAL) 2 % (0-9); HELMET CELLS PRESENT; MONOCYTES % (MANUAL) 8 % (0-12); OVALOCYTES PRESENT; POIKILOCYTOSIS SLIGHT AMT
[2018-10-22] MEDS ORDERED: FUROSEMIDE 20 MG TAB PO SCH (09:00)
[2018-10-22] MEDS: CARVEDILOL 3.125 MG TAB PO SCH (10:05)
[2018-10-22] MEDS: POLYETHYLENE GLYCOL 17 GM/1 TBS PDS PO SCH (10:05)
[2018-10-22] MEDS: SPIRONOLACTONE 25 MG TAB PO SCH (10:06)
[2018-10-22] MEDS: BUPROPION HCL 300 MG PO SCH (10:07)
[2018-10-22] MEDS: PALBOCICLIB 125 MG PO SCH (10:09)
[2018-10-22] MEDS: PANTOPRAZOLE SODIUM 40 MG ECT PO SCH (10:29)
[2018-10-22] MEDS: LETROZOLE 2.5 MG PO SCH (10:29)
[2018-10-22] MEDS: LORAZEPAM 0.5 MG TAB PO PRN (11:36)
[2018-10-22] MEDS: PROCHLORPERAZINE MALEATE 5 MG TAB PO PRN ×2 (11:55→17:42)
[2018-10-22] MEDS: ONDANSETRON HCL 4 MG TAB PO PRN (15:31)
[2018-10-22] MEDS: UBIDECARENONE 400 MG PO SCH (16:46)
[2018-10-22] MEDS: HYDROXYZINE PAMOATE 25 MG CAPSULE PO PRN (17:06)
[2018-10-23 02:36] VITALS: RESP 46
[2018-10-23] MEDS: CARVEDILOL 3.125 MG TAB PO SCH (05:39)
[2018-10-23] MEDS: PANTOPRAZOLE SODIUM 40 MG ECT PO SCH ×2 (05:40→09:46)
[2018-10-23] MEDS: UBIDECARENONE 400 MG PO SCH ×2 (05:41→09:46)
[2018-10-23] MEDS ORDERED: LETROZOLE 2.5 MG TAB PO SCH (09:00)
[2018-10-23] MEDS ORDERED: BUPROPION XL 300 MG T24 PO SCH (09:00)
[2018-10-23 09:04] VITALS: BP 85/54; PULSE 72; O2SAT 24
[2018-10-23 09:08] VITALS: TEMP 96.8
[2018-10-23] MEDS: PALBOCICLIB 125 MG PO SCH (09:46)
[2018-10-23] MEDS: POLYETHYLENE GLYCOL 17 GM/1 TBS PDS PO SCH (09:46)
[2018-10-23] MEDS: SPIRONOLACTONE 25 MG TAB PO SCH (09:46)
== END 2018-10-23 13:25 | disposition hospice, inpatient (51) | DRG 292 ==
LOC: ACUTE CARE 18:50
PROVIDERS: ADMIT Family Medicine; ATTEND Family Medicine
DX: I50.9 Heart failure, unspecified (principal); J90 Pleural effusion, not elsewhere classified; E44.0 Moderate protein-calorie malnutrition; C79.81 Secondary malignant neoplasm of breast; E87.5 Hyperkalemia; R06.02 Shortness of breath
CPT/HCPCS: 36415; 71045; 80048; 84484; 85007; 85027; 85378; 93005; 94762; J1940; A9270-GY; J1650